=== PATIENT | male | born 1940 ===

== ENCOUNTER → 2021-07-09 | Day surgery (SDC) | payer MEDICARE, OTHER ==
[~2021-07-09] VITALS: Ht 177.8 cm; Wt 79.4 kg
[~2021-07-09] MED LIST: CRESTOR20 MG PO; FLOMAX0.4 MG PO; ISOSORBIDE DINI30 MG PO; NORVASC10 MG PO; OMEPRAZOLE40 MG PO; PLAVIX75 MG PO; TOPROL XL 25MG25 MG PO
[2021-07-09 09:59] LABS: HCT 46.5 % (42.0-52.0); HGB 15.6 g/dl (13.2-18.0); MCHC 33.5 g/dL (32.0-36.0); MCV 92.4 fL (78.0-100.0); MPV 10.4 fL (6.0-9.5); RBC 5.03 M/uL (4.70-6.00); WBC 6.5 K/uL (4.0-10.5)
[2021-07-09 10:06] LABS: ALBUMIN 4.1 g/dL (3.4-5.0); BILIRUBIN - TOTAL 0.7 mg/dL (0.2-1.0); BUN/CREAT RATIO (CALC) 9.3 RATIO; CREATININE 0.86 mg/dL (0.67-1.17); GLOBULIN (CALCULATION) 3.2 g/dL; POTASSIUM 4.3 mmol/L (3.5-5.1); TOTAL PROTEIN 7.3 g/dL (6.4-8.2)
== END | disposition home or self-care (01) ==
LOC: FAS 08:54
PROVIDERS: Surgery
DX: K22.2 Esophageal obstruction (principal); K44.9 Diaphragmatic hernia without obstruction or gangrene; Z95.1 Presence of aortocoronary bypass graft; Z95.5 Presence of coronary angioplasty implant and graft; Z79.02 Long term (current) use of antithrombotics/antiplatelets
CPT/HCPCS: 36415; 80053; C1726; J1610; J2704; J7120